=== PATIENT | male | born 1970 | race Caucasian/White ===

== ENCOUNTER 2019-05-03 15:15 | Emergency (ER) | payer BC ==
[2019-05-03 15:51] VITALS: BP 143/75
--- NOTE | 2019-05-03 16:44 | UC ---
Dental HPI - HPI Summary HPI Summary: Patient 48-year-old patient presented with refractory tooth pain status post dental work done in the left second molar with a With previously damaged/tooth with cavity that was repaired with a cap 2 days ago. Pain is excruciating, sharp/electrical-like shocky tooth pain that keeps pt up at night. - History of Current Complaint Chief Complaint: UCDentalProblem Stated Complaint: DENTAL COMPLAINT Time Seen by Provider: 05/03/19 15:56 Hx Obtained From: Patient Onset/Duration: Sudden Onset Severity: Severe Pain Intensity: 10 Aggravating Factor(s): Nothing Alleviating Factor(s): OTC Meds - Allergies/Home Medications Allergies/Adverse Reactions: Allergies Allergy/AdvReac Type Severity Reaction Status Date / Time No Known Allergies Allergy Verified 05/03/19 15:47 PMH/Surg Hx/FS Hx/Imm Hx Previously Healthy: Yes - Surgical History Surgical History: None - Family History Known Family History: Positive: Non-Contributory - Social History Alcohol Use: Weekly Substance Use Type: None Smoking Status (MU): Never Smoked Tobacco Review of Systems All Other Systems Reviewed And Are Negative: Yes Constitutional: Positive: Negative Skin: Positive: Negative Eyes: Positive: Negative ENT: Positive: Dental Pain Respiratory: Positive: Negative Cardiovascular: Positive: Negative Gastrointestinal: Positive: Negative Genitourinary: Positive: Negative Musculoskeletal: Positive: Negative Neurological: Positive: Negative Is Patient Immunocompromised?: No Physical Exam - Summary Physical Exam Summary: Appearance: Positive: No Pain Distress Skin: Positive: Warm Head/Face: Positive: Normal Head/Face Inspection Eyes: :Normal ENT: Normal ENT inspection, no perigingival tenderness, no cavities on left 2nd molar Neck: Positive: Supple Respiratory/Lung Sounds: Positive: Clear to Auscultation. Cardiovascular: Positive: Normal, RRR, S1, S2 Abdomen : soft, NT/ND Musculoskeletal: Positive: Normal, Strength/ROM Intact Neurological: Positive: CN 2-12 grossly intact Vital Signs: Initial Vital Signs Temp 36.8 C 05/03/19 15:47 Pulse 56 05/03/19 15:47 Resp 16 05/03/19 15:47 BP 143/75 05/03/19 15:47 Pulse Ox 100 05/03/19 15:47 Dental Complaint Course/Dx - Course Course Of Treatment: uncontrolled dental root/nerve pain- advised dental f/u ronny, pain control - Differential Dx/Diagnosis Provider Diagnosis: Atypical toothache Discharge ED - Sign-Out/Discharge Documenting (check all that apply): Patient Departure All imaging exams completed and their final reports reviewed: No Studies - Discharge Plan Condition: Stable Disposition: HOME Prescriptions: Naproxen [Naproxen 500 mg tab] 500 mg PO BID 10 Days #20 tablet oxyCODONE/Acetamin 5/325 MG* [Percocet 5/325 TAB*] 1 tab PO Q8H PRN 2 Days #6 tab MDD 3 PRN Reason: Pain - Severe Patient Education Materials: Toothache (ED) Referrals: Otoniel Boyer DO [Primary Care Provider] - - Billing Disposition and Condition Condition: STABLE Disposition: Home
== END 2019-05-03 16:43 | disposition home or self-care (01) ==
LOC: UCCORT 15:15
DX: K08.89 Other specified disorders of teeth and supporting structures (principal)
CPT/HCPCS: 99202; G0463